=== PATIENT | male | born 1945 | race Caucasian/White ===

== ENCOUNTER 2023-08-19 18:38 | Inpatient (IN) | payer OTHER ==
[2023-08-19] MEDS: DIPHTH,PERTUSS(ACELL),TET 0.5 ML DISP.SYRIN IM ONE (20:37)
[2023-08-19] MEDS ORDERED: DIPHTH,PERTUSS(ACELL),TET 0.5 ML DISP.SYRIN IM ONE (20:38)
[2023-08-19 21:23] LABS: BASO % 0.3 % (0-2.0); EOS % 1.2 % (0-4.5); HEMOGLOBIN 13.1 GM/dL (11.7-16.9); LYMPH % 18.9 % (8-40); MCH 32.2 pg (25.7-33.7); MCHC 34.4 g/dl (32.0-35.9); MEAN CELL VOLUME 93.6 fl (80-96); MEAN PLT VOLUME 6.5 fl (7.5-11.1); MONO % 5.9 % (3.8-10.2); NEUT % 73.7 % (42.8-82.8); PLATELET COUNT 194 10^3/uL (134-434); RBC 4.06 M/mm3 (4.00-5.60); RDW 13.1 % (11.9-15.9)
[2023-08-19 21:28] LABS: INR 1.13 (0.83-1.09); PROTHROMBIN TIME (PATIENT) 13.1 SEC (9.7-13.0)
[2023-08-19 21:31] LABS: ACTIVATED PTT 26.7 SECONDS (25.2-36.5)
[2023-08-19 21:42] LABS: POTASSIUM 3.9 mmol/L (3.5-5.1)
[2023-08-19 21:47] LABS: ALBUMIN 3.8 g/dl (3.4-5.0); BLOOD UREA NITROGEN 15.2 mg/dL (7-18); CALCIUM 8.4 mg/dL (8.5-10.1)
[2023-08-19 21:51] LABS: BILIRUBIN,TOTAL 0.6 mg/dL (0.2-1); CREATININE 0.9 mg/dL (0.55-1.3)
[2023-08-19 21:55] LABS: N-TERMINAL BNP 31.9 pg/ml (5-450)
[2023-08-20] MEDS ORDERED: traMADol HCL 50 MG TABLET PO PRN (02:56)
[2023-08-20 03:48] VITALS: BMI 24.7
[2023-08-20] MEDS: ACETAMINOPHEN 500 MG TABLET (FP) PO SCH (05:43)
[2023-08-20 08:12] LABS: HEMATOCRIT 35.6 % (35.4-49); HEMOGLOBIN 12.6 GM/dL (11.7-16.9); MCH 32.7 pg (25.7-33.7); MCHC 35.5 g/dl (32.0-35.9); MEAN CELL VOLUME 92.3 fl (80-96); MEAN PLT VOLUME 6.7 fl (7.5-11.1); PLATELET COUNT 202 10^3/uL (134-434); RBC 3.86 M/mm3 (4.00-5.60); WHITE BLOOD COUNT 8.5 K/mm3 (4.0-10.0)
[2023-08-20 08:46] LABS: PH,URINE 5.5 (5.0-8.0); URINE APPEARANCE CLEAR; URINE BILIRUBIN NEGATIVE (NEGATIVE); URINE COLOR YELLOW; URINE GLUCOSE (UA) NEGATIVE (NEGATIVE); URINE KETONE NEGATIVE (NEGATIVE); URINE LEUK ESTERASE NEGATIVE (NEGATIVE); URINE NITRITE NEGATIVE (NEGATIVE); URINE PROTEIN NEGATIVE (NEGATIVE); URINE UROBILINOGEN 0.2 mg/dL (0.2-1.0)
[2023-08-20 08:51] LABS: ALBUMIN 3.8 g/dl (3.4-5.0); BLOOD UREA NITROGEN 18.3 mg/dL (7-18)
[2023-08-20 08:53] LABS: CALCIUM 8.7 mg/dL (8.5-10.1)
[2023-08-20 08:54] LABS: CREATININE 0.8 mg/dL (0.55-1.3); MAGNESIUM 1.9 mg/dL (1.8-2.4)
[2023-08-20 08:55] LABS: COCAINE, UR NEGATIVE (NEGATIVE); METHADONE, UR NEGATIVE (NEGATIVE); PHENCYCLIDINE,URINE NEGATIVE (NEGATIVE); URINE BENZODIAZEPINES NEGATIVE (NEGATIVE)
[2023-08-20 08:56] LABS: PHOSPHOROUS 3.4 mg/dL (2.5-4.9)
[2023-08-20 09:23] LABS: OPIATES, URI NEGATIVE (NEGATIVE); URINE AMPHETAMINES NEGATIVE (NEGATIVE); URINE BARBITURATES NEGATIVE (NEGATIVE)
[2023-08-20] MEDS ORDERED: KETOROLAC TROMETHAMINE 10 MG TABLET PO PRN (10:25)
[2023-08-20 13:03] VITALS: RESP 20
[2023-08-20] MEDS: ATORVASTATIN CA 20 MG TABLET (FP) PO SCH (21:51)
[2023-08-21 05:01] VITALS: BP 146/83; PULSE 95; TEMP 97.5
[2023-08-21 08:54] LABS: HEMATOCRIT 36.3 % (35.4-49); HEMOGLOBIN 12.8 GM/dL (11.7-16.9); MCH 32.8 pg (25.7-33.7); MCHC 35.2 g/dl (32.0-35.9); MEAN CELL VOLUME 93.1 fl (80-96); MEAN PLT VOLUME 7.1 fl (7.5-11.1); PLATELET COUNT 218 10^3/uL (134-434); WHITE BLOOD COUNT 7.7 K/mm3 (4.0-10.0)
[2023-08-21 09:12] LABS: CALCIUM 9.4 mg/dL (8.5-10.1)
[2023-08-21 09:13] LABS: BLOOD UREA NITROGEN 22.7 mg/dL (7-18)
[2023-08-21 09:16] LABS: CREATININE 1.1 mg/dL (0.55-1.3)
== END 2023-08-21 08:36 | disposition home or self-care (01) | DRG 566 ==
LOC: JER 18:38 → JERBED 23:53 → J6S 08-20 03:03
PROVIDERS: ADMIT Internal Medicine; ATTEND Internal Medicine
DX: M25.462 Effusion, left knee (principal); E78.5 Hyperlipidemia, unspecified; R26.89 Other abnormalities of gait and mobility; I10 Essential (primary) hypertension; F10.929 Alcohol use, unspecified with intoxication, unspecified; I25.10 Atherosclerotic heart disease of native coronary artery without angina pectoris; S76.112A Strain of left quadriceps muscle, fascia and tendon, initial encounter; W18.39XA Other fall on same level, initial encounter; Y92.480 Sidewalk as the place of occurrence of the external cause; Y99.9 Unspecified external cause status
CPT/HCPCS: 36415; 70450-TC; 72125-TC; 73562-TC-LT-FY; 80048; 80053; 80307; 81003; 82962; 83735; 83880; 84100; 84484; 85025; 85027; 85610; 85730; 87086; 90715; 93971-TC; 97116-GP; 97162-GP; 99285-25

== ENCOUNTER 2025-01-30 10:49 | Inpatient (IN) | payer OTHER ==
[2025-01-30 11:07] VITALS: BMI 26.7
[2025-01-30] MEDS ORDERED: ACETAMINOPHEN 325 MG TABLET (FP) ONE (11:35)
[2025-01-30] MEDS: ACETAMINOPHEN 325 MG TABLET (FP) PO ONE (11:37)
[2025-01-30 13:49] LABS: ABSOLUTE IMMATURE GRANULOCYTES 0.07 x10^3/uL (0.0-0.031); BASOPHILS # 0.04 x10^3/uL (0.01-0.08); EOSINOPHIL % 0.8 % (0.8-7.0); EOSINOPHILS # 0.08 x10^3/uL (0.04-0.54); MCHC 33.2 g/dl (32.3-36.5); MEAN CELL VOLUME 96.4 fl (79.0-92.2); MEAN PLT VOLUME 9.0 fl (9.4-12.4); MONOCYTE # 0.50 x10^3/uL (0.30-0.82); MONOCYTE % 5.0 % (5.3-12.2); RDW 12.1 % (12.2-16.6)
[2025-01-30 14:00] LABS: INR 1.17 (0.83-1.09); PROTHROMBIN TIME (PATIENT) 12.9 SEC (9.7-13.0)
[2025-01-30 14:03] LABS: ACTIVATED PTT 27.2 SECONDS (25.2-36.5)
[2025-01-30 14:05] LABS: URINE COLOR YELLOW
[2025-01-30 14:06] LABS: URINE APPEARANCE CLEAR; URINE BILIRUBIN NEGATIVE (NEGATIVE); URINE GLUCOSE (UA) NEGATIVE (NEGATIVE); URINE KETONE NEGATIVE (NEGATIVE)
[2025-01-30 14:07] LABS: URINE LEUK ESTERASE NEGATIVE (NEGATIVE); URINE NITRITE NEGATIVE (NEGATIVE); URINE PROTEIN TRACE (NEGATIVE); URINE UROBILINOGEN 0.2 mg/dL (0.2-1.0)
[2025-01-30 14:14] LABS: GLUCOSE,RANDOM 104.0 mg/dL (74-106); TOT PROT 7.2 g/dl (6.4-8.2)
[2025-01-30 14:15] LABS: CO2 22.0 mmol/L (21-32)
[2025-01-30 14:17] LABS: ALK PHOS 100.0 U/L (40-150)
[2025-01-30 14:19] LABS: CREATININE 0.85 mg/dL (0.55-1.3); SGOT/AST 28.0 U/L (5-34); SGPT/ALT 26.0 U/L (0-55)
[2025-01-30 14:58] LABS: HCV DIAGNOSTIC IN-HOUSE W/RFLX NON-REACTIVE (NONREACTIVE); HIV INTERPRETATION NEGATIVE (NEGATIVE)
[2025-01-30] MEDS: SODIUM CHLORIDE 500 ML IV STA (15:52)
[2025-01-30] MEDS: KETOROLAC TROMETHAMINE 15 MG/ML VIAL IVPUSH PRN (15:57)
[2025-01-30] MEDS ORDERED: KETOROLAC TROMETHAMINE 15 MG/ML VIAL ONE (15:57)
[2025-01-30] MEDS: ACETAMINOPHEN 1000 MG/100 ML BAG IVPB PRN (21:13)
[2025-01-30] MEDS: ATORVASTATIN CA 40 MG TABLET (FP) PO SCH (21:21)
[2025-01-31] MEDS ORDERED: VANCOMYCIN 1,000 MG VIAL (RESTRICTED TO ID ONLY) ONE (12:29)
[2025-01-31] MEDS ORDERED: MIDAZOLAM HCL 2 MG/2 ML SINGLE DOSE VIAL ONE (15:31)
[2025-01-31] MEDS ORDERED: PROPOFOL 20 ML ONE ×2 (15:34→17:54)
[2025-01-31] MEDS ORDERED: TRANEXAMIC ACID 1000 MG/10 ML VIAL ONE (15:51)
[2025-01-31] MEDS ORDERED: DEXAMETHASONE SOD PHOSPHATE 4 MG/1 ML VIAL ONE (17:12)
[2025-01-31] MEDS ORDERED: ONDANSETRON 4 MG/2 ML VIAL ONE (17:12)
[2025-01-31] MEDS ORDERED: ONDANSETRON 4 MG/2 ML VIAL IVPUSH PRN ×2 (18:17→18:58)
[2025-01-31] MEDS ORDERED: LACTATED RINGERS SOLUTION 1,000 ML IV SCH (18:30)
[2025-01-31] MEDS ORDERED: MAG HYDROX/AL HYDROX/SIMETH 30 ML UNIT-DOSE CUP PO PRN (18:58)
[2025-01-31] MEDS: SENNOSIDES/DOCUSATE COMBO (SENNA PLUS) TABLET (UD) PO SCH (21:15)
[2025-01-31] MEDS: GABAPENTIN 300 MG CAPSULE PO SCH (21:15)
[2025-01-31] MEDS: ATORVASTATIN CA 40 MG TABLET (FP) PO SCH (21:15)
[2025-01-31] MEDS: LACTATED RINGERS SOLUTION 1,000 ML IV SCH (21:15)
[2025-01-31] MEDS: KETOROLAC TROMETHAMINE 15 MG/ML VIAL IVPUSH PRN (22:07)
[2025-01-31] MEDS: CEFAZOLIN SODIUM 2 GM in DEXTROSE 5%-WATER 100 ML IVPB SCH (23:21)
[2025-02-01 08:43] LABS: ABSOLUTE IMMATURE GRANULOCYTES 0.05 x10^3/uL (0.0-0.031); BASOPHILS # 0.02 x10^3/uL (0.01-0.08); EOSINOPHIL % 0.2 % (0.8-7.0); EOSINOPHILS # 0.02 x10^3/uL (0.04-0.54); MCHC 32.9 g/dl (32.3-36.5); MEAN CELL VOLUME 98.6 fl (79.0-92.2); MEAN PLT VOLUME 9.5 fl (9.4-12.4); MONOCYTE # 0.67 x10^3/uL (0.30-0.82); MONOCYTE % 7.9 % (5.3-12.2); RDW 12.5 % (12.2-16.6)
[2025-02-01 09:00] LABS: GLUCOSE,RANDOM 119.0 mg/dL (74-106); TOT PROT 6.2 g/dl (6.4-8.2)
[2025-02-01 09:01] LABS: CO2 25.0 mmol/L (21-32)
[2025-02-01 09:03] LABS: ALK PHOS 84.0 U/L (40-150)
[2025-02-01 09:06] LABS: CREATININE 0.88 mg/dL (0.55-1.3); SGOT/AST 29.0 U/L (5-34); SGPT/ALT 19.0 U/L (0-55)
[2025-02-01] MEDS: ACETAMINOPHEN 1000 MG/100 ML BAG IVPB PRN (09:59)
[2025-02-01] MEDS: ENOXAPARIN NA (PORCINE) 40 MG/0.4 ML DISP.SYRIN SQ SCH (10:00)
[2025-02-01] MEDS: MULTIVITAMINS (DAILY MVI) TABLET (FP) PO SCH (10:00)
[2025-02-01] MEDS: PANTOPRAZOLE 40 MG TABLET PO SCH (10:00)
[2025-02-02 09:15] LABS: MCHC 33.5 g/dl (32.3-36.5); MEAN CELL VOLUME 97.5 fl (79.0-92.2); MEAN PLT VOLUME 9.5 fl (9.4-12.4); RDW 12.6 % (12.2-16.6)
[2025-02-02] MEDS: ACETAMINOPHEN 325 MG TABLET (FP) PO PRN (21:47)
[2025-02-03 10:32] VITALS: BP 132/70; PULSE 81; RESP 16; TEMP 97.9
== END 2025-02-03 10:40 | DRG 522 ==
LOC: JER 10:49 → OBSVTOIN 15:29 → JERBED 15:29 → UNDOADMOB 16:16 → JERBED 16:16 → J6S 18:07
PROVIDERS: ADMIT Internal Medicine; ATTEND Internal Medicine
PROC: 0SRS0J9 Replacement of Left Hip Joint, Femoral Surface with Synthetic Substitute, Cemented, Open Approach (ICD-10-PCS; principal; 2025-01-31 15:00)
DX: S72.002A Fracture of unspecified part of neck of left femur, initial encounter for closed fracture (principal); D69.6 Thrombocytopenia, unspecified; E78.1 Pure hyperglyceridemia; E78.5 Hyperlipidemia, unspecified; W19.XXXA Unspecified fall, initial encounter; Y93.9 Activity, unspecified; Y92.89 Other specified places as the place of occurrence of the external cause; Y99.9 Unspecified external cause status
CPT/HCPCS: 36415; 70450-TC; 71045-TC-FY; 72125-TC; 72170-TC-FY; 73552-TC-LT-FY; 80048; 80053; 81003; 83735; 84100; 85025; 85027; 85610; 85730; 86803; 86850; 86900; 86901; 87086; 87389; 93005; 93010; 94010; 94760; 97116-GP; 97162-GP; 99285-25; C1776; C1889